=== PATIENT | male | born 1945 | race Two or more races ===

== ENCOUNTER 2019-06-29 06:00 | Day surgery (SDC) | payer OTHER ==
[~2019-06-29 06:00] MED LIST: ATACAND32 MG PO; FORTAMET1000 MG PO; GLIPIZIDE ER2.5 MG PO; NORVASC5 MG PO; PREVACID30 MG PO; VENTOLIN HFA18 GM IH
[2019-06-29] MEDS ORDERED: TRAMADOL HCL50 MG PO (12:07)
[2019-06-29] MEDS ORDERED: NEURONTIN300 MG PO (12:07)
[2019-06-29] MEDS ORDERED: MIRALAX17 GM PO (12:07)
[2019-06-29] MEDS ORDERED: ZOFRAN4 MG PO (12:07)
[2019-06-29] MEDS ORDERED: TYLENOL EXTRA500 MG PO (12:07)
== END 2019-06-29 14:55 | disposition home or self-care (01) ==
LOC: CIR.AMB 06:00
DX: K40.91 Unilateral inguinal hernia, without obstruction or gangrene, recurrent (principal); K43.2 Incisional hernia without obstruction or gangrene